=== PATIENT | male | born 1985 | race Caucasian/White ===

== ENCOUNTER 2016-10-11 07:55 | Day surgery (SDC) | payer OTHER ==
[2016-10-11] VITALS (12 sets, daily range): BP systolic 100–118; BP diastolic 50–83
[~2016-10-11] VITALS: Ht 177.8 cm; Wt 59.0 kg
[2016-10-11] MEDS ORDERED: NKM (08:39)
[2016-10-11] MEDS ORDERED: LR 1000ml 1,000 ML IV SCH ×2 (08:45→11:45)
[2016-10-11 09:07] LABS: BASOPHILS % (AUTO) 1.2 % (0.0-2.0); EOSINOPHILS % (AUTO) 1.9 % (0.0-3.0); LYMPHOCYTES % (AUTO) 41.2 % (20.0-45.0); MEAN CORPUSCULAR HEMOGLOBIN 30.5 PG (27.0-31.0); MEAN CORPUSCULAR HGB CONC 33.1 G/DL (32.0-36.0); MEAN CORPUSCULAR VOLUME 92 FL (80-99); MEAN PLATELET VOLUME 9.2 FL (6.5-10.1); MONOCYTES % (AUTO) 6.7 % (1.0-10.0); NEUTROPHILS % (AUTO) 48.9 % (45.0-75.0); PLATELET COUNT 165 K/UL (150-450); RED BLOOD COUNT 5.17 M/UL (4.70-6.10); WHITE BLOOD COUNT 5.6 K/UL (4.8-10.8)
[2016-10-11 09:15] LABS: INR 1.1 (0.9-1.1); PROTHROMBIN TIME 11.6 SEC (9.30-11.50)
[2016-10-11 09:20] LABS: ANION GAP 12 (5-15); CALCIUM 9.8 mg/dL (8.6-10.2); CARBON DIOXIDE 30 mEQ/L (20-30); CHLORIDE 101 mEQ/L (98-107); CREATININE 0.9 mg/dL (0.7-1.2); GLOMERULAR FILTRATION RATE > 60 mL/min (>60); HEMOLYSIS 4; POTASSIUM 4.2 mEQ/L (3.4-4.9); SODIUM 143 mEQ/L (135-145)
--- NOTE | 2016-10-11 10:35 | Pre-Procedure Note/Attestation ---
Pre-Procedure Note/Attestation Complete Prior to Procedure Planned Procedure: not applicable Attestation I attest that I discussed the nature of the procedure; its benefits; risks and complications; and alternatives (and the risks and benefits of such alternatives ), prior to the procedure, with the patient (or the patient's legal field representative/health education). I attest that, if there was a reasonable possibility of needing a blood transfusion, the patient (or the patient's legal field representative/health education) was given the [facility] standardized written summary, pursuant to the Sander Abiel Blood Safety Act ([place] Health and Safety Code # 1645, as amended). I attest that I re-evaluated the patient just prior to the surgery and that there has been no change in the patient's H&P, except as documented below: Julien River Oct 11, 2016 10:35
--- NOTE | 2016-10-11 10:35 | History and Physical ---
History of Present Illness General Date patient seen: Oct 11, 2016 Present Illness HPI Pre op H&P: 31M seen prior in office for evaluation of pilonidal disease. As per patient, he has had pilonidal disease for many years now. He has had prior flare ups with inflammation which he has been evaluated by his pcp and given abx. Recently he had another flare up and went to his pcp who removed a few hairs from pilonidal clefts and referred him to me for surgical intervention. When seen in the office patient was feeling well without complaints. Recent flare up has resolved. States he occasionally has drainage from cleft. Otherwise well without complaints. Allergies: Coded Allergies: METOCLOPRAMIDE (Verified Adverse Reaction, Intermediate, 10/11/16) Medication History Scheduled No Known Medications* (NKM - No Known Medications*), 0 ., (Reported) Patient History History Provided By: Patient Healthcare decision maker Resuscitation status Advanced Directive on File Past Medical/Surgical History Past Medical/Surgical History: (1) Pilonidal disease Review of Systems Constitutional: Denies: chills, fever, malaise, no symptoms, other, see HPI, sweats, weakness Eye: Denies: acuity changes, blurred vision, discharge, double vision, eye pain , no symptoms, nose congestion, nose pain, other, see HPI, tearing ENT: Denies: ear discharge, ear pain, hearing loss, mouth pain, nasal discharge , no symptoms, nose congestion, nose pain, other, see HPI, throat pain, throat swelling Respiratory: Denies: BEGUM, cough, no symptoms, orthopnea, other, see HPI, shortness of breath, sputum, stridor, wheezing Cardiovascular: Denies: PND, chest pain, edema, no symptoms, other, palpitations, see HPI, syncope Gastrointestinal: Denies: abdominal pain, constipation, diarrhea, hematemesis, melena, nausea, no symptoms, other, see HPI, vomiting Genitourinary: Denies: discharge, dysuria, frequency, hematuria, incontinence, no symptoms, other, pain, retention, see HPI, urgency, vag bleed/dc Musculoskeletal: Denies: back pain, gout, joint pain, joint swelling, muscle pain, muscle stiffness, no symptoms, other, see HPI Skin: Denies: change in color, change in hair/nails, dryness, lesions, no symptoms, other, rash, see HPI Psychiatric: Denies: HI, SI, anxiety, depressed feelings, emotional problems, hallucinations, no symptoms, other, prior hx, see HPI Neurological: Denies: dizziness, focal weakness, headache, no symptoms, numbness, other, paresthesia, see HPI, seizure, syncope, tingling, tremors Endocrine: Denies: excessive sweating, flushing, increased thirst, increased urine, intolerance to temperature, no symptoms, other, see HPI, unexplained weight loss Hematologic/Lymphatic: Denies: anemia, blood clots, diathesis, easy bleeding, easy bruising, no symptoms, other, see HPI, swollen glands All Other Systems: negative except mentioned in HPI Physical Exam General Appearance: WD/WN, no apparent distress, alert Lines, tubes and drains: peripheral HEENT: normocephalic, atraumatic, PERRL Neck: normal inspection Respiratory/Chest: lungs clear, normal breath sounds, no respiratory distress, no accessory muscle use Cardiovascular/Chest: normal peripheral pulses, normal rate, regular rhythm Abdomen: normal bowel sounds, non tender, soft, no organomegaly, no mass Extremities: normal range of motion Skin Exam: normal pigmentation, other - lower back notes small area of pilonidal disease with clefts. no hair in clefts at this time Neurologic: alert, oriented x 3 Last 24 Hour Vital Signs Date Time Temp Pulse Resp B/P Pulse Ox O2 Delivery O2 Flow Rate FiO2 10/11/16 08:32 97.9 56 17 107/58 99 Room Air Laboratory Tests Test 10/11/16 08:45 White Blood Count 5.6 K/UL (4.8-10.8) Red Blood Count 5.17 M/UL (4.70-6.10) Hemoglobin 15.7 G/DL (14.2-18.0) Hematocrit 47.6 % (42.0-52.0) Mean Corpuscular Volume 92 FL (80-99) Mean Corpuscular Hemoglobin 30.5 PG (27.0-31.0) Mean Corpuscular Hemoglobin Concent 33.1 G/DL (32.0-36.0) Red Cell Distribution Width 11.0 % (11.6-14.8) L Platelet Count 165 K/UL (150-450) Mean Platelet Volume 9.2 FL (6.5-10.1) Neutrophils (%) (Auto) 48.9 % (45.0-75.0) Lymphocytes (%) (Auto) 41.2 % (20.0-45.0) Monocytes (%) (Auto) 6.7 % (1.0-10.0) Eosinophils (%) (Auto) 1.9 % (0.0-3.0) Basophils (%) (Auto) 1.2 % (0.0-2.0) Prothrombin Time 11.6 SEC (9.30-11.50) H Prothromb Time International Ratio 1.1 (0.9-1.1) Activated Partial Thromboplast Time 28 SEC (23-33) Sodium Level 143 mEQ/L (135-145) Potassium Level 4.2 mEQ/L (3.4-4.9) Chloride Level 101 mEQ/L (98-107) Carbon Dioxide Level 30 mEQ/L (20-30) Anion Gap 12 (5-15) Blood Urea Nitrogen 15 mg/dL (7-23) Creatinine 0.9 mg/dL (0.7-1.2) Estimat Glomerular Filtration Rate > 60 mL/min (>60) Glucose Level 105 mg/dL (74-106) Calcium Level 9.8 mg/dL (8.6-10.2) Height (Feet): 5 Height (Inches): 10.00 Weight (Pounds): 130 Medications Current Medications Medications (Trade) Dose Ordered Sig/Vito Route PRN Reason Start Time Stop Time Status Last Admin Dose Admin Lactated Ringer's (Lactated Ringer's 1000ml) 1,000 ml @ 0 mls/hr Q0M IV 10/11/16 08:45 11/10/16 08:44 Assessment/Plan Problem List: (1) Pilonidal disease Assessment & Plan: 31M pilonidal disease. Surgery indicated. Will proceed to OR today for excision of pilonidal disease. NPO IV fluids Pre op Abx Pre op as per anesthesia ICD Codes: L98.8 - Other specified disorders of the skin and subcutaneous tissue SNOMED: [id number] Status: stable Julien River Oct 11, 2016 10:35
[2016-10-11] MEDS ORDERED: MEPIVACAINE INJ ONE (10:56)
[2016-10-11] MEDS ORDERED: Propofol 10mg/ml 100ml btl IV ONE (11:00)
[2016-10-11] MEDS ORDERED: LR 1000ml ONE (11:00)
[2016-10-11] MEDS ORDERED: Midazolam 2mg/2ml Inj ONE (11:00)
[2016-10-11] MEDS ORDERED: Sterile Water Irrig 1000ml IRRIG ONE (11:00)
[2016-10-11] MEDS ORDERED: NS Irrig 1000ml ONE (11:00)
[2016-10-11] MEDS ORDERED: fentaNYL 100 mcg/2 mL IV ONE (11:00)
[2016-10-11] MEDS ORDERED: Lidocaine 1% 10mg/ml/Epi 0.005mg/ml 30ml vial INJ ONE (11:18)
[2016-10-11] MEDS ORDERED: ceFAZolin sod 2 GM in D5W 110 ML IV ONE (11:30)
[2016-10-11] MEDS ORDERED: LR 1000ml 1,000 ML IVLG SCH (11:38)
--- NOTE | 2016-10-11 11:43 | Anethesia Preoperative Eval ---
Anesthesia Pre-op PMH/ROS General Date of Evaluation: Oct 11, 2016 Time of Evaluation: 10:50 Anesthesiologist: Martell ASA Score: ASA 1 Mallampati Score Class I : Soft palate, uvula, fauces, pillars visible Class II: Soft palate, uvula, fauces visible Class III: Soft palate, base of uvula visible Class IV: Only hard plate visible Mallampati Classification: Class I Surgeon: Perico Diagnosis: Pilonidal cyst Surgical Procedure: Excision of pilonidal cyst Anesthesia History: none Family History: no anesthesia problems Allergies: Coded Allergies: METOCLOPRAMIDE (Verified Adverse Reaction, Intermediate, 10/11/16) Medications: see eMAR Past Medical History Cardiovascular: Denies: CAD, HTN, HI, arrhythmia, other, valve dz Pulmonary: Denies: COPD, ROSALES, asthma, other Gastrointestinal/Genitourinary: Denies: CRI, ESRD, GERD, other Neurologic/Psychiatric: Denies: CVA, TIA, dementia, depression/anxiety, other Endocrine: Denies: DM, hypothyroidism, other, steroids HEENT: Denies: ZUNI (L), ZUNI (R), cataract (L), cataract (R), glaucoma, other Hematology/Immune: Denies: DVT, anemia, bleeding disorder, other Musculoskeletal/Integumentary: Denies: DDD, DJD, OA, RA, edema, other PMH Narrative: Denies significant PMH PSxH Narrative: No prior surgery Anesthesia Pre-op Phys. Exam Physician Exam Last Vital Signs Date Time Temp Pulse Resp B/P Pulse Ox O2 Delivery O2 Flow Rate FiO2 10/11/16 08:32 97.9 56 17 107/58 99 Room Air Constitutional: NAD Neurologic: CN 2-12 intact Cardiovascular: RRR, no M/R/G Respiratory: CTA Gastrointestinal: S/NT/ND Airway Exam Mallampati Score: Class I MO: full ROM: full Teeth: intact Anesthesia Pre-op A/P Labs Hematology Test 10/11/16 08:45 White Blood Count 5.6 K/UL (4.8-10.8) Red Blood Count 5.17 M/UL (4.70-6.10) Hemoglobin 15.7 G/DL (14.2-18.0) Hematocrit 47.6 % (42.0-52.0) Mean Corpuscular Volume 92 FL (80-99) Mean Corpuscular Hemoglobin 30.5 PG (27.0-31.0) Mean Corpuscular Hemoglobin Concent 33.1 G/DL (32.0-36.0) Red Cell Distribution Width 11.0 % (11.6-14.8) L Platelet Count 165 K/UL (150-450) Mean Platelet Volume 9.2 FL (6.5-10.1) Neutrophils (%) (Auto) 48.9 % (45.0-75.0) Lymphocytes (%) (Auto) 41.2 % (20.0-45.0) Monocytes (%) (Auto) 6.7 % (1.0-10.0) Eosinophils (%) (Auto) 1.9 % (0.0-3.0) Basophils (%) (Auto) 1.2 % (0.0-2.0) Coagulation Test 10/11/16 08:45 Prothrombin Time 11.6 SEC (9.30-11.50) H Prothromb Time International Ratio 1.1 (0.9-1.1) Activated Partial Thromboplast Time 28 SEC (23-33) Chemistry Test 10/11/16 08:45 Sodium Level 143 mEQ/L (135-145) Potassium Level 4.2 mEQ/L (3.4-4.9) Chloride Level 101 mEQ/L (98-107) Carbon Dioxide Level 30 mEQ/L (20-30) Anion Gap 12 (5-15) Blood Urea Nitrogen 15 mg/dL (7-23) Creatinine 0.9 mg/dL (0.7-1.2) Estimat Glomerular Filtration Rate > 60 mL/min (>60) Glucose Level 105 mg/dL (74-106) Calcium Level 9.8 mg/dL (8.6-10.2) Risk Assessment & Plan Assessment: Healthy male for pilonidal cystectomy Plan: Spinal Status Change Before Surgery: No Pre-Antibiotics Drug: Ancef Given Within 1 Hr of Incision: Yes Time Given: 11:20 JULIANN VERA M.D. Oct 11, 2016 11:43
--- NOTE | 2016-10-11 11:44 | Immediate Post-Op Evaluation ---
Immediate Post-Op Evalulation Immediate Post-Op Evalulation Procedure: Excision of pilonidal cyst Date of Evaluation: Oct 11, 2016 Time of Evaluation: 12:35 IV Fluids: 900 Blood Pressure Systolic: 101 Blood Pressure Diastolic: 51 Pulse Rate: 59 Respiratory Rate: 20 O2 Sat by Pulse Oximetry: 100 Temperature (Fahrenheit): 98.2 Pain Score (1-10): 0 Nausea: No Vomiting: No Complications No complication Patient Status: awake, patent, none Hydration Status: adequate Drug: Ancef Given Within 1 Hr of Incision: Yes Time Given: 11:20 JULIANN VERA M.D. Oct 11, 2016 11:44
[2016-10-11] MEDS ORDERED: Meperidine 25mg/0.5ml Inj IV PRN ×2 (11:45→15:00)
[2016-10-11] MEDS ORDERED: Midazolam 2mg/2ml Inj IVP PRN (11:45)
[2016-10-11] MEDS ORDERED: Hydromorphone 0.5mg/0.5ml inj IVP PRN (11:45)
[2016-10-11] MEDS ORDERED: Bacitracin Oint 15gm Tube TOPIC ONE (11:56)
[2016-10-11] MEDS ORDERED: Hydrogen Peroxide 473ml Bottle TOPIC ONE (11:59)
--- NOTE | 2016-10-11 12:25 | Brief Operative Note ---
Immediate Post Operative Note Operative Note Pre-op Diagnosis: Pilonidal disease Procedure: Excision of pilonidal disease Post-op Diagnosis: same as pre-op Findings: consistent w/pre-op dx studies Surgeon: Perico Anesthesiologist: Luis Anesthesia: local, moderate sedation, other - spinal Specimen: yes - pilonidal disease Complications: none Condition: stable Fluids: see anesthesia records Estimated Blood Loss: minimal Drains: none Implant(s) used?: No Julien iRver Oct 11, 2016 12:25
--- NOTE | 2016-10-11 12:28 | 48 Hour Post Anesthesia Eval ---
Post Anesthesia Evaluation Procedure: Excision of pilonidal cyst Date of Evaluation: Oct 11, 2016 Time of Evaluation: 13:00 Blood Pressure Systolic: 105 0: 55 Pulse Rate: 56 Respiratory Rate: 20 O2 Sat by Pulse Oximetry: 99 Airway: patent Nausea: No Vomiting: No Pain Intensity: 0 Hydration Status: adequate Cardiopulmonary Status: Stable Mental Status/LOC: patient returned to baseline Follow-up Care/Observations: As per surgery Post-Anesthesia Complications: No anesthetic complication Follow-up care needed: N/A JULIANN VERA M.D. Oct 11, 2016 12:28
--- NOTE | 2016-10-11 20:15 | Operative Note - Dictated ---
DATE OF OPERATION: 10/11/2016 PREOPERATIVE DIAGNOSIS: Pilonidal disease. POSTOPERATIVE DIAGNOSIS: Pilonidal disease. OPERATION PERFORMED: Excision of pilonidal disease. ATTENDING SURGEON: Julien River M.D. RAISE MINER SURGEON: None. ANESTHESIOLOGIST: Sander Moura M.D. ANESTHESIA: Spinal plus moderate sedation and local. ESTIMATED BLOOD LOSS: Minimal. IV FLUIDS: Please see anesthesia records. ANTIBIOTICS: A 2 g of Ancef intravenous given one hour prior to cut time COMPLICATIONS: None. SPECIMENS: Pilonidal disease sent to pathology for review. IMPLANTS: None. WOUND CLASSIFICATION: Class 1. SPONGE AND NEEDLE COUNT: Correct x2. OPERATIVE FINDINGS: 1. Small area of pilonidal disease with clefts and air in the lower midline back just at the superior portion of the gluteal cleft was noted. 2. Area was excised including tracks of the cleft. 3. Wound was closed primarily without tension. INDICATIONS FOR PROCEDURE: This is a 31-year-old male seen prior in the office for evaluation of pilonidal disease. The patient has had pilonidal disease for multiple years now and has had multiple flare-ups requiring care to the area as well as antibiotics. Recently the patient had another attack which was treated by his primary physician and has resolved. The patient was referred to [facility] for surgical management. When evaluated there is an area of pilonidal disease noted above the gluteal cleft in the posterior midline lower back. The hairs are removed and the area was cleaned but given the patient's history of chronic disease with multiple flare ups, surgical intervention was warranted and desired by patient. The risks, benefits, and alternatives of surgical intervention including bleeding, infection, recurrence need for reoperation, wound dehiscence, and wound infection and possible prolonged wound care and pain were explained in detail to patient. The patient expressed understanding and consented to surgery. OPERATIVE NOTE: The patient was taken to the operating room and placed on the operating table in the supine position with bilateral arms out. The patient was then placed upright and spinal anesthetic was given by the anesthesiologist. Once this was complete, the patient was given moderate sedation and turned into the prone tommy-knife position. All bony prominence were well padded with gel pads. The lower back was then prepped and draped in standard surgical fashion. There is approximately three or four pilonidal disease clefts noted. These were probed and the distal aspect of the clefts were identified. The proposed skin incision was mapped out around the area of pilonidal disease as well as the track of the cleft. Once this completed, a fresh 15-blade was used to make elliptical skin incision around the area of the pilonidal disease. This incision was taken down through the dermis and subcutaneous tissue with electrocautery. The area of pilonidal disease was excised in whole down to the fascia of the sacrum. No further clefts or tracts were identified during the dissection. Once area of pilonidal disease was excised in whole, it was removed and sent to pathology for review. The wound was then cleansed and evaluated. Hemostasis was achieved with electrocautery. Given the area that was excised with an elliptical incision decision made to primarily close the wound given minimal tension noted upon bringing the skin edges together. I discussed with the patient preoperatively that if we do proceed with a primary closure that there is a chance of wound dehiscence and potentially an infection. In evaluating wound, we began our complex closure with multiple layers starting with a 2-0 Vicryl deep subcutaneous followed by a 3-0 Vicryl dermal and finally a 3-0 Monocryl subcuticular. The wound came together well without significant tension. At this time, dressing of bacitracin and Xeroform followed by dressings were applied to the wound. Local was infiltrated throughout the procedure as necessary. The patient tolerated procedure well and was taken to the postanesthetic care unit in stable condition. Julien River M.D. DR: Kristen JOB#: [id number] CC:
== END 2016-10-11 15:35 | disposition home or self-care (01) ==
LOC: SUR 07:55
DX: L05.91 Pilonidal cyst without abscess (principal); L05.92 Pilonidal sinus without abscess; Z88.8 Allergy status to other drugs, medicaments and biological substances
CPT/HCPCS: 11772; 36415; 80048; 85025; 85610; 85730; J0690; J2250; J2704; J3010; J7120; 94003; 94150; J2180